=== PATIENT | male | born 1995 | race Caucasian/White ===

== ENCOUNTER 2024-05-19 08:22 | Emergency (ER) | payer OTHER, SELFPAY ==
[2024-05-19 08:28] VITALS: BP 141/80; PULSE 102; RESP 20; TEMP 38.1; O2SAT 100
--- NOTE | 2024-05-19 08:50 | ED.URI ---
HPI - URI/Sore Throat General Chief Complaint: Upper Respiratory Infection Stated Complaint: sore throat sore throat History of Present Illness HPI Narrative: Pt is a 28 y/o male, presents to with 2 day hx of fevers, sore throat and malaise. He denies rhinorrhea or cough. He has no known sick contacts or strep exposures. His immunizations are UTD Related Data Allergies Allergy/AdvReac Type Severity Reaction Status Date / Time No Known Drug Allergies Allergy Unknown Verified 05/19/24 08:41 Review of Systems Constitutional: Comments: refer to HPI ENT: Comments: refer to HPI Exam Const: General: healthy appearing and no acute distress Nutritional Appearance: well nourished Orientation/consciousness: patient oriented x3 Limitations: no limitations HENMT: Head: normal to inspection Ears: TM abnormal (TM's retracted bilaterally, clear otherwise) Face/Nose/Sinus: Normal external nose present Face and sinus: normal facial exam and sinuses nontender Mouth: Yes Normal oral and palatal mucosa present Throat: uvula midline (diffuse pharyngeal erythema w tonsil swelling and exudate) Eyes: Conjunctivae: conjunctivae normal Pupils: Equal, round and reactive pupils present EOM: EOMs intact bilaterally Neck: Neck: normal visual inspection, no lymphadenopathy and no meningeal signs Chest: Chest palpation & inspection: normal inspection of the chest Resp: Effort & Inspection: normal respiratory effort Auscultation: clear to auscultation bilaterally Cardio: Rate: tachycardic Other: tachy with fever Skin: General skin exam: normal color Rashes: no rashes Wounds: no wounds Neuro: General: patient oriented x3, moves all extremities and no meningeal signs Cranial nerves: Yes Nystagmus not present Speech: normal speech Gait exam (Neuro): Normal gait present Extrem: General: normal to inspection Course Course Emergency Course: strep positive, will treat with oral abx, amoxil, APAP and Motrin for fevers, FU with PCP in 3 days if fevers are not resolving Level of Care: [facility] ([id number]) Vital Signs Vital signs: Vital Signs Temperature 38.1 C H 05/19/24 08:28 Pulse Rate 102 H 05/19/24 08:28 Respiratory Rate 20 05/19/24 08:28 Blood Pressure 141/80 H 05/19/24 08:28 Pulse Oximetry 100 05/19/24 08:28 Oxygen Delivery Room Air 05/19/24 08:28 Temperature 38.1 C H 05/19/24 08:28 Pulse Rate 102 H 05/19/24 08:28 Respiratory Rate 20 05/19/24 08:28 Blood Pressure 141/80 H 05/19/24 08:28 Pulse Oximetry 100 05/19/24 08:28 Oxygen Delivery Room Air 05/19/24 08:28 MDM - URI/Sore Throat MDM Narrative Medical decision making narrative: strep positive, will treat with amoxil, FU in 3 days if symptoms are not resolving Differential Diagnosis Differential diagnosis: Likely upper respiratory infection and pharyngitis Lab Data Labs: Strep Screen Positive Group A Strep *(Reference Range: Negative)* Discharge Plan Discharge Clinical Impression: Acute streptococcal pharyngitis Patient Disposition: Home, Self-Care Condition: Stable Instructions: Antibiotic Form, Strep Throat (ED) Additional Instructions: PUSH FLUIDS, COMPLETE ANTIBIOTICS PRESCRIBED, CONTROL FEVERS WITH TYLENOL AND MOTRIN DIRECTED OVER THE COUNTER. SEE YOUR PRIMARY CARE PROVIDER IN 3 DAYS IF SYMPTOMS ARE NOT RESOLVING. Prescriptions: New amoxicillin 500 mg capsule 1,000 mg PO Q12H 10 Days Qty: 40 0RF Follow-up/Referrals: PHYSICIAN,RESTORATION OFFICER [Primary Care Provider] - Stand Alone Forms: Work/School Release IP Time of Disposition: 09:00
== END 2024-05-19 09:01 | disposition home or self-care (01) ==
PROVIDERS: Emergency Provider Nurse Practitioner Family
DX: J02.0 Streptococcal pharyngitis (principal)
CPT/HCPCS: 87880; 99213; G0463

== ENCOUNTER 2024-05-20 09:22 | Emergency (ER) | payer OTHER, SELFPAY ==
[2024-05-20 09:23] VITALS: BP 115/69; PULSE 89; RESP 18; TEMP 36.8; O2SAT 100
--- NOTE | 2024-05-20 09:42 | ED.GENADULT ---
HPI - General Adult General Chief complaint: Upper Respiratory Infection Stated complaint: worsening strep sx Time Seen by Provider: 05/20/24 09:36 Source: patient Mode of arrival: ambulatory Limitations: no limitations History of Present Illness HPI narrative: This is a 28-year-old male with chief complaint of sore throat times 2 days. Patient was diagnosed with streptococcal pharyngitis yesterday. He had a positive strep test at urgent care. Reports he has taken 3 doses of amoxicillin and been using Tylenol and ibuprofen. States that the symptoms seem to be worsening. He has having worsening pain and difficulty with swallowing. Endorses subjective fevers. Endorses 1 episode of vomiting yesterday. Related Data Allergies Allergy/AdvReac Type Severity Reaction Status Date / Time No Known Drug Allergies Allergy Unknown Verified 05/19/24 08:41 Review of Systems Review of Systems: All systems as dictated in HPI Exam Narrative: GENERAL: Well-appearing, well-nourished, and in no acute distress. HEAD: Normocephalic, atraumatic. EYES: PERRLA and EOMI. ENT: 3+ tonsillar swelling bilaterally. No exudates visualized. Tonsils and pharynx are erythematous. Uvula midline. Slightly muffled voice. No trismus or drooling. Nares clear, no rhinorrhea or epistaxis. Mucous membranes moist. NECK: Supple. No adenopathy or masses. CHEST: No respiratory distress. Clear to auscultation. No wheezes rales or rhonchi HEART: Regular rate and rhythm. No murmur heard. Normal peripheral pulses. ABDOMEN: Soft, nontender, nondistended, normal active bowel sounds. MSK: Normal range of motion. No edema. SKIN: Warm, dry, no rash. NEURO: Alert and oriented x4. No focal deficits. PSYCH: Normal mood and affect. Course Vital Signs Vital signs: Vital Signs Temperature 98.2 F 05/20/24 09:23 Pulse Rate 89 05/20/24 09:23 Respiratory Rate 18 05/20/24 09:23 Blood Pressure 115/69 05/20/24 09:23 Pulse Oximetry 100 05/20/24 09:23 Oxygen Delivery Room Air 05/20/24 09:23 Temperature 98.2 F 05/20/24 09:23 Pulse Rate 80 05/20/24 10:00 Respiratory Rate 18 05/20/24 10:00 Blood Pressure 130/76 05/20/24 10:00 Pulse Oximetry 99 05/20/24 10:15 Oxygen Delivery Room Air 05/20/24 09:23 Medical Decision Making MDM Narrative Medical decision making narrative: This is a 28-year-old male presents to the ED with chief complaint of worsening sore throat and dysphagia with recent diagnosis strep pharyngitis. Vitals are normal. Exam shows bilateral erythematous and swollen tonsils. uvula is midline. No obvious or discrete abscess on exam. Lab work is unremarkable patient was given Solu-Medrol, Toradol and Unasyn upon arrival. He is showing moderate relief with these interventions. He is now able to swallow water a lot easier than this morning. He feels comfortable going home. Offered CT scan for further investigation but we had shared decision making to avoid this point. Rx for Medrol Dosepak was added on to the strep throat regimen already prescribed by urgent care. Pt will be discharged in stable condition. Return precautions given and supportive measures discussed. Pt is understanding and agreeable with plan for discharge and follow-up with PCP. Vital Signs Vital Signs: Vital Signs Temperature 98.2 F 05/20/24 09:23 Pulse Rate 89 05/20/24 09:23 Respiratory Rate 18 05/20/24 09:23 Blood Pressure 115/69 05/20/24 09:23 Pulse Oximetry 100 05/20/24 09:23 Oxygen Delivery Room Air 05/20/24 09:23 Temperature 98.2 F 05/20/24 09:23 Pulse Rate 80 05/20/24 10:00 Respiratory Rate 18 05/20/24 10:00 Blood Pressure 130/76 05/20/24 10:00 Pulse Oximetry 99 05/20/24 10:15 Oxygen Delivery Room Air 05/20/24 09:23 Lab Data 05/20/24 10:00 05/20/24 10:30 Labs: Lab Results 05/20/24 05/20/24 Range/Units 10:00 10:30 W
[2024-05-20] MEDS: SODIUM CHLORIDE 0.9% IV 1,000 ML 999 ML IV CONT (09:57)
[2024-05-20] MEDS: KETOROLAC 30 MG/ML VIAL (*BKC) (09:58)
[2024-05-20] MEDS: methylPREDNISolone SOD SUCC 40 MG VIAL 60 MG IV PUSH (09:58)
[2024-05-20 10:00] VITALS: BP 130/76; PULSE 80; RESP 18; O2SAT 100
[2024-05-20 10:10] LABS: Basophils Percent Auto 0.2 % (0.2-1.2); Hematocrit 42.5 % (42.0-52.0); Hemoglobin 14.9 g/dL (14.0-18.0); Immature Granulocyte Absolute 0.05 K/mm3 (0.00-0.031); Immature Granulocyte Percent A 0.5 % (0-0.5); Immature Platelet Fraction Pct 5.6 % (0.9-11.2); Lymphocytes Absolute Auto 0.73 K/mm3 (0.9-3.2); Lymphocytes Percent Auto 7.3 % (18.3-44.2); Mean Corpuscular HGB Conc 35.1 g/dl (32-36); Mean Corpuscular Hemoglobin 28.9 pg (26-34); Mean Corpuscular Volume 82.5 fl (80-100); Mean Platelet Volume 10.6 fl (7.4-10.4); Monocytes Absolute Auto 1.4 K/mm3 (0.1-0.6); Monocytes Percent Auto 13.9 % (2.6-8.5); Neutrophils Absolute Auto 7.9 K/mm3 (1.3-6.7); Neutrophils Percent Auto 78.1 % (45.5-73.1); Platelet Count Result 121 k/mm3 (150-375); Red Blood Count 5.15 M/mm3 (4.6-6.20); Red Cell Distribution Width 12.3 % (11.5-14.5); White Blood Count 10.1 K/mm3 (4.5-10.0)
[2024-05-20 10:15] VITALS: O2SAT 99
[2024-05-20] MEDS: AMPICILLIN SULB 3 GM/NS 100 ML 3 GM/100 ML VIAL IVPB (10:31)
[2024-05-20 10:56] LABS: Alanine Aminotransferase 24 U/L (6-50); Albumin Level 4.2 g/dL (3.5-5.1); Alkaline Phosphatase 60 U/L (38-126); Anion Gap 7 mmol/L (4-12); Aspartate Amino Transferase 28 U/L (17-59); Bilirubin,Total 3.2 mg/dL (0.2-1.3); Blood Urea Nitrogen 14 mg/dL (9-20); Calcium 8.6 mg/dL (8.4-10.2); Carbon Dioxide 28 mmol/L (22-30); Chloride 105 mmol/L (98-107); Estimated CRCL calculation 112 ml/min; Estimated Glomerular Filt Rate > 60; Glucose 117 mg/dL (65-110); Potassium 3.8 mmol/L (3.4-5.0); Sodium 140 mmol/L (137-145)
== END 2024-05-20 11:20 | disposition home or self-care (01) ==
PROVIDERS: Emergency Provider Physician Assistant
DX: J02.0 Streptococcal pharyngitis (principal)
CPT/HCPCS: 36415; 80053; 85025; 85055; 96361; 96365; 96375; 99284; J0295; J1885; J2919; J7030